=== PATIENT | male | born 1995 | race Two or more races ===

== ENCOUNTER 2020-04-18 13:53 | Emergency (ER) | payer MEDICAID, SELFPAY ==
[2020-04-18 13:58] VITALS: BP 149/71; PULSE 70; RESP 16; TEMP 36.7; BMI 28.8
[2020-04-18 14:02] VITALS: O2SAT 100
[2020-04-18 14:56] LABS: MANUAL DIFF FLAG NO
[2020-04-18 14:58] LABS: Basophils Percent Auto 0.1 % (0-2); Eosinophils Percent Auto 0.1 % (0-4); Hematocrit 43.3 % (42-52); Hemoglobin 14.7 g/dl (14.0-18.0); Imm Gran Abs Auto 0.02 X10*3/uL (0.00-0.03); Imm Gran Pct Auto 0.2 % (0.0-0.4); Lymphocytes Absolute Auto 1.4 X10*3/uL (1.2-4.9); Lymphocytes Percent Auto 17.3 % (20-40); Mean Corpuscular HGB Conc 33.9 g/dl (31.0-36.0); Mean Corpuscular Hemoglobin 30.8 pg (27.0-33.0); Mean Corpuscular Volume 90.8 fL (80-98); Mean Platelet Volume 9.3 fL (9.4-12.4); Monocytes Absolute Auto 0.6 X10*3/uL (0.1-1.2); Monocytes Percent Auto 7.4 % (2-11); Neutrophils Absolute Auto 6.1 X10*3/uL (2.0-8.3); Neutrophils Percent Auto 74.9 % (45-73); Platelet Count 258 X10*3/uL (160-400); Red Blood Count 4.77 X10*6/uL (4.60-5.80); Red Cell Distribution Width 12.7 % (11.0-16.0); White Blood Count 8.1 X10*3/uL (4.8-10.8)
[2020-04-18] MEDS: 0.9 % Sodium Chloride 1,000 ML 999 ML IV (15:12)
[2020-04-18 15:20] LABS: COVID-19 Test Negative (Negative)
[2020-04-18 15:40] LABS: Alanine Aminotransferase 26 U/L (0-40); Albumin Level 4.8 g/dL (3.5-5.0); Alkaline Phosphatase 85 U/L (39-117); Anion Gap 12 (12-20); Aspartate Amino Transferase 19 U/L (5-37); Bilirubin Total 0.4 mg/dL (0.0-1.0); Blood Urea Nitrogen 9 mg/dL (9-16); Calcium 9.4 mg/dL (8.4-10.2); Carbon Dioxide 29 mmol/L (22-29); Chloride 102 mmol/L (96-108); Creatinine Clr Calc Pharmacy 119.8; Estimated Glomerular Filt Rate > 60; Glucose Random 105 mg/dL (60-115); Potassium 4.1 mmol/l (3.3-5.1); Sodium 139 mmol/L (135-145); Total Protein 7.5 g/dL (6.5-8.0)
--- NOTE | 2020-04-18 15:55 | ED.GENADULT ---
HPI - General Adult General Chief complaint: General Medical Stated complaint: Multiple complaints Time Seen by Provider: 04/18/20 14:03 Source: patient Mode of arrival: ambulatory Limitations: no limitations History of Present Illness HPI narrative: Otherwise healthy 25-year-old male presenting with complaint of 2 days of nausea and vomiting with myalgias states he went to his primary care doctor's office yesterday he had a COVID test that was negative he had labs done and today he called as he continued to have nausea and vomiting was advised to come to the emergency room. Positive sick contact, no recent travel or antibiotic use. Onset (ago): day(s) Quality: aching Relieving factors: none Treatments prior to arrival: none Related Data Previous Rx's Medication Instructions Recorded ondansetron HCl [Zofran] 4 mg PO Q8H PRN #10 tab 04/18/20 Allergies Allergy/AdvReac Type Severity Reaction Status Date / Time No Known Allergies Allergy Unverified 12/23/19 16:16 Review of Systems Review of Systems: Constitutional: No Weight loss, No Fever, No Chills, No Night Sweats, No Fatigue, No Malaise ENT/Mouth: No Hearing loss, No Ear Pain, No Nasal Congestion, No Sinus Pain, No Hoarseness, No sore throat, No Rhinorrhea, No Swallowing Difficulty Eyes: No Eye Pain, No Swelling, No Redness, No Foreign Body, No Discharge, No Vision Changes Cardiovascular: No Chest Pain, No SOB, No Dyspnea on Exertion, No Orthopnea, No Edema, No Palpitations Respiratory: No Cough, No Sputum, No Wheezing, No Smoke Exposure, No Dyspnea Gastrointestinal: + Nausea, + Vomiting, No Diarrhea, No Constipation, + abdominal Pain, No Hematochezia, No Melena Genitourinary: no irregular bleeding, No Dysuria, No Urinary Frequency, No Hematuria, No Urinary Incontinence, No Urgency, No Flank Pain Musculoskeletal: No joint pain, No Myalgias, No Joint Swelling Skin: No Skin Lesions, No rash Neuro: No Weakness, No Numbness, No Paresthesias, No Loss of Consciousness, No Dizziness, No Headache Psych: No Social Issues Heme/Lymph: No Bruising, No Bleeding,No Lymphadenopathy Endocrine: No Polyuria, No Polydipsia, No Temperature Intolerance Yes all other systems are reviewed and are negative [facility] Social History Social History Advance Directives: No Advance Directives Information Provided: No Physical Exam Vital Signs: Vital Signs: Last Vital Signs Temp 98.1 F 04/18/20 13:58 Pulse 70 04/18/20 13:58 Resp 16 04/18/20 13:58 BP 149/71 H 04/18/20 13:58 Pulse Ox 100 04/18/20 14:02 Body Mass Index 28.8 Reviewed Const: General: cooperative and healthy appearing; No acute distress or intoxicated appearing Nutritional Appearance: average body habitus Orientation/consciousness: patient oriented x3 HENMT: Head: Yes normal to inspection Ears: hearing grossly normal bilaterally Eyes: General: appearance normal, both eyes and all related structures Visual Tobias: normal visual tobias by confrontation Neck: Neck: Yes normal visual inspection, No positive Brudzinski's sign, No positive Kernig's sign and No tender Thyroid: Thyroid normal Chest: Chest palpation & inspection: normal inspection of the chest Resp: Effort & Inspection: normal respiratory effort Auscultation: clear to auscultation bilaterally Cardio: Jugular venous distension: no JVD Rhythm: regular rhythm Heart sounds: S1 normal heart sound present and S2 normal heart sound present GI: Inspection: Yes normal to inspection Palpation (GI): Soft to palpation, nontender, no guarding and not rigid Percussion: Yes normal to percussion Auscultation: normal bowel sounds : General: Yes no CVA tenderness Back/Spine/Pelvis: Back: no CVA tenderness Skin: General skin exam: no rashes or lesions noted Neuro: General: patient oriented x3 Extrem: General: Yes normal to inspection Course Course Course Narrative: Has been resting comfortably. Labs overall stable. No leukocytosis. Abdominal exam on re-evaluation reveals no acute surgical abdomen. COVID negative. Will discharge home with short course of Zofran, clear return follow-up instructions/precautions. Patient agreeable and comfortable plan. Requesting work note for today. Medical Decision Making Differential Diagnosis Differential Diagnosis: Viral syndrome, gastroenteritis, acute N/V, appendicitis, renal calculi. Lab Data Result diagrams: 04/18/20 14:51 04/18/20 14:51 Labs: Lab Results 04/18/20 04/18/20 04/18/20 Range/Units 14:51 14:51 14:52 WBC 8.1 (4.8-10.8) X10*3/uL RBC 4.77 (4.60-5.80) X10*6/uL Hgb 14.7 (14.0-18.0) g/dl Hct 43.3 (42-52) % MCV 90.8 (80-98) fL MCH 30.8 (27.0-33.0) pg MCHC 33.9 (31.0-36.0) g/dl RDW 12.7 (11.0-16.0) % Plt Count 258 (160-400) X10*3/uL MPV 9.3 L (9.4-12.4) fL Immature Gran % (Auto) 0.2 (0.0-0.4) % Neut % (Auto) 74.9 H (45-73) % Lymph % (Auto) 17.3 L (20-40) % [place] % (Auto) 7.4 (2-11) % Eos % (Auto) 0.1 (0-4) % Baso % (Auto) 0.1 (0-2) % Lymph # (Auto) 1.4 (1.2-4.9) X10*3/uL [place] # (Auto) 0.6 (0.1-1.2) X10*3/uL Eos # (Auto) 0.0 (0.0-0.4) X10*3/uL Baso # (Auto) 0.0 (0.0-0.2) X10*3/uL Abs Immat Gran (auto) 0.02 (0.00-0.03) X10*3/uL Absolute Neuts (auto) 6.1 (2.0-8.3) X10*3/uL Absolute Nucleated RBC 0.000 (0.0-0.012) X10*3/uL Nucleated RBC % (auto) 0.0 (0.0-0.2) /100WBC Sodium 139 (135-145) mmol/L Potassium 4.1 (3.3-5.1) mmol/l Chloride 102 (96-108) mmol/L Carbon Dioxide 29 (22-29) mmol/L Anion Gap 12 (12-20) BUN 9 (9-16) mg/dL Creatinine 1.18 (0.5-1.4) mg/dL Estim Creat Clear Calc 119.8 Estimated GFR > 60 Random Glucose 105 (60-115) mg/dL Calcium 9.4 (8.4-10.2) mg/dL Total Bilirubin 0.4 (0.0-1.0) mg/dL AST 19 (5-37) U/L ALT 26 (0-40) U/L Alkaline Phosphatase 85 (39-117) U/L Total Protein 7.5 (6.5-8.0) g/dL Albumin 4.8 (3.5-5.0) g/dL COVID-19 ([facility]) Negative (Negative) COVID-19 Clin Com See Note Discharge Plan Discharge Clinical Impression: Gastroenteritis Patient Disposition: Home, Self-Care Instructions: Acute Nausea and Vomiting (ED) Additional Instructions: Drink plenty of fluids Gradually increase her diet as tolerated Your blood work was overall stable today Her COVID test was negative today Return if any concerns or worsening symptoms Thank you Prescriptions: New ondansetron HCl [Zofran] 4 mg tablet 4 mg PO Q8H PRN (Reason: nausea and vomiting) Qty: 10 RF: 0 Referrals: [facility] [Primary Care Provider] - 1 week
== END 2020-04-18 16:23 | disposition home or self-care (01) ==
PROVIDERS: Nurse Practitioner Primary Care; Emergency Provider Emergency Medicine Emergency Medical Services
DX: K52.9 Noninfective gastroenteritis and colitis, unspecified (principal); R11.2 Nausea with vomiting, unspecified; Z20.828 Contact with and (suspected) exposure to other viral communicable diseases
CPT/HCPCS: 36415; 80053; 85025; 87635; 96360; 99283; 99284

== ENCOUNTER 2021-08-05 11:08 | Emergency (ER) | payer MEDICAID, SELFPAY ==
[2021-08-05 11:14] VITALS: BP 137/77; PULSE 102; RESP 18; TEMP 36.9; O2SAT 98; BMI 30.3
--- NOTE | 2021-08-05 11:35 | ED.GENADULT ---
HPI - General Adult General Chief complaint: General Medical Stated complaint: fever back pain Time Seen by Provider: 08/05/21 11:29 Source: patient Mode of arrival: ambulatory Limitations: no limitations History of Present Illness HPI narrative: 26 y/o male presents to the ER with severe generalized body aches that stated today. He was diagnosed with COVID-19 today. He states his back pain is unbearable. He is also coughing, having headaches and generalized malaise. He is unvaccinated. He reports some SOB with exertion only. No difficulty breathing or chest pain. He is asking for pain medication for his back because it is severe. He denies any urinary complaints, abdominal pain, N/V/D. MD complaint: body aches Onset (ago): hour(s) Location: back Radiation: non-radiation Severity: moderate Quality: aching Pain Consistency: constant Relieving factors: none Exacerbating factors: none Associated symptoms: cough, headaches, loss of appetite, malaise and shortness of breath Treatments prior to arrival: none Related Data Previous Rx's Medication Instructions Recorded ondansetron HCl 4 mg tablet 4 mg PO Q8H PRN #10 tab 04/18/20 (Zofran) ibuprofen 800 mg tablet 800 mg PO Q8H PRN #15 tab 08/05/21 Allergies Allergy/AdvReac Type Severity Reaction Status Date / Time No Known Allergies Allergy Unverified 12/23/19 16:16 Review of Systems Review of Systems: Constitutional: No Fever, No Chills ENT/Mouth: + sore throat, No Rhinorrhea, No Swallowing Difficulty Eyes: No Eye Pain, No Swelling, No Redness Cardiovascular: No Chest Pain, + SOB, No Orthopnea, No Edema Respiratory: + Cough, No Sputum, No Wheezing, No dyspnea Gastrointestinal: No Nausea, No Vomiting, No Diarrhea, No abdominal Pain Genitourinary: No Dysuria, No Urinary Frequency, No Hematuria Musculoskeletal: +joint pain, + Myalgias Skin: No Skin Lesions, No rash Neuro: No Weakness, No Numbness, No Dizziness, + Headache Psych: No Anxiety/Panic, No Depression Heme/Lymph: No Bruising, No Lymphadenopathy PMFSH Past Medical History Medical History (Updated 08/05/21 @ 11:37 by ZACARIAS Gomez) No known health problems Social History Social History Advance Directives: No Advance Directives Information Provided: Yes Physical Exam ED Vital Signs: Vital Signs - 24 hr 08/05/21 11:14 Temperature 98.5 F Pulse Rate 102 H Respiratory Rate 18 Blood Pressure 137/77 Pulse Oximetry 98 BMI result Body Mass Index 30.3 Appearance: Alert. Oriented X3. No acute distress. Eyes: Pupils equal, round and reactive to light. ENT: Pharynx normal. Neck: Normal inspection. Neck supple. CVS: Normal heart rate and rhythm. Pulses normal. Respiratory: No respiratory distress. Breath sounds normal. Abdomen: Soft and nontender. +BS x4 Back: normal inspection. tenderness of the soft tissues throughout. Skin: Skin warm and dry. Normal skin color. Normal skin turgor. No rashes. Extremities: No lower extremity edema. Neuro: Oriented X 3. No motor deficit. No sensory deficit. Steady gait Course Course Course Narrative: 26 y/o male presenting with severe body aches, dry cough, headaches that started today. VSS and exam is unremarkable. Medicated with Motrin. He is asking for something stronger for muscle aches. We discussed treatment for body aches in the setting of viral illness. Narcotics not indicated. Stable for discharge home. Return precautions discussed Discharge Plan Discharge Clinical Impression: COVID-19 Patient Disposition: Home, Self-Care Instructions: Covid-19 Viral Syndrome and Novel Coronavirus (ED) Hey/Ath Additional Instructions: You were found to be COVID-19 POSITIVE today. Your exam and oxygen levels were normal. Rest. Drink plenty of fluids. Do not go out in public for the next 10 days. Take over the counter cold/flu medications as needed for your symptoms. Take Tylenol and Motrin as needed for fevers and body aches. Follow up with your doctor this week. If you shortness of breath worsens , if you develop difficulty breathing or any other concerning symptom come back to the ER for further evaluation. Prescriptions: New ibuprofen 800 mg tablet 800 mg PO Q8H PRN (Reason: fever or pain) Qty: 15 0RF No Action ondansetron HCl [Zofran] 4 mg tablet 4 mg PO Q8H PRN (Reason: nausea and vomiting) Qty: 10 0RF Stand Alone Forms: Work/School Release Interventions: ED Discharge Assessment Last Done: 08/05/21 12:12 Discharge Date/Time: 08/05/21 12:13
[2021-08-05] MEDS: Ibuprofen 600 MG TABLET PO (11:38)
== END 2021-08-05 12:13 | disposition home or self-care (01) ==
PROVIDERS: Emergency Provider Emergency Medicine
DX: U07.1 COVID-19 (principal)
CPT/HCPCS: 99283

== ENCOUNTER → 2022-11-29 10:06 | Outpatient (BNVA) | payer OTHER, SELFPAY | PROVIDERS: Visit Provider Internal Medicine | DX: M24.562 Contracture, left knee (principal); M62.89 Other specified disorders of muscle; S93.492A Sprain of other ligament of left ankle, initial encounter; W17.2XXA Fall into hole, initial encounter | CPT/HCPCS: 99203 ==

== ENCOUNTER → 2022-12-03 10:09 | Outpatient (BNVA) | payer OTHER, SELFPAY | PROVIDERS: Visit Provider Physician Assistant Medical | DX: M24.562 Contracture, left knee (principal); M79.669 Pain in unspecified lower leg; S93.492A Sprain of other ligament of left ankle, initial encounter; W17.2XXA Fall into hole, initial encounter | CPT/HCPCS: 99213 ==

== ENCOUNTER → 2022-12-12 12:59 | Outpatient (BNVA) | payer OTHER, SELFPAY | PROVIDERS: Visit Provider Physician Assistant Medical | DX: M24.562 Contracture, left knee (principal); S93.492D Sprain of other ligament of left ankle, subsequent encounter; W17.2XXD Fall into hole, subsequent encounter | CPT/HCPCS: 99213 ==

== ENCOUNTER 2022-12-30 10:00 | Outpatient (RCR) | payer OTHER, SELFPAY ==
--- NOTE | 2022-12-04 11:25 | MHC.PT.EP ---
[facility] [place] Office [place] Office [place] Office [address] [phone] F: [phone] F: [phone] F: [phone] F: [phone] Physical Therapy Plan of Care Date of Evaluation: Date of Surgery: Diagnosis: L knee hyperextension gastrocnemius strain L ankle sprain Assessment: 27 y/o male referred from work connection for L knee hyperextension, L gastrocnemius strain, and L ankle sprain with injury occurring on 11/26/22. Injury occurred while pulling some hose out to a garden, he stepped in a ditch resulting in hyperextension of L knee and rolled ankle. He is currently OOW and he has been using B axillary crutches (did not use them today d/t rain). Reports pain and difficulty with walking (knee lucho), stairs, turning, squatting, and job duties. Examination shows decreased L knee and ankle AROM, decreased B HS/ L gastroc length, decreased L LE strength, mild lag with SLR, mild laxity with danica and valgus test, (-) Anterior drawer/ Varus/ darling tests, mild edema L knee, and impaired gait pattern. Recommend PT 2x/week for 5 weeks to address impairments, implement HEP, and optimize functional mobility Frequency and Duration: The patient will be seen 2x/week for 5 weeks Short Term Goals: 3 weeks Compliant with HEP AMbulate without assistive device and symmetrical gait pattern > 20 minutes Assisted Goals: 5 weeks I with HEP and self management of sx Pt will improve L knee strength to 4/5 to faciliate stairs management and work duties Pt will be able to lift >20# box from floor to waist to faciliate work duties with pain < 3/10 Treatment Plan: Modalities to reduce pain, spasms and effusion. Manual therapy to restore motion and function. Therapeutic exercise to improve strength and flexibility. Neuromuscular re-education for posture and balance. Therapeutic activities to return to functional activities of daily living. Electronically signed by: Christa Holley PT Please sign and return to therapist. Thank you for your referral.
--- NOTE | 2023-02-05 09:31 | MHC.PT.DC ---
[facility] [place] [facility] [place] Office [place] Office [address]mary [address] [phone] F: [phone] F: [phone] F: [phone] F: [phone] Physical Therapy Discharge Report Diagnosis: L knee hyperextension gastrocnemius strain L ankle sprain Date of Surgery: Date of Evaluation: 12/04/22 Date of Discharge: 02/05/23 Treatments to Date: 8 Cancellations to Date: 3 No Shows to Date: 0 Discharge Status: Independent with HEP Patient Elected to Stop Discharge Summary: Pt made minimal progress with PT with continued pain. He underwent knee MRI and left message that he will be having surgery. D/c at this time. Electronically signed by: Christa Holley PT Please sign and return to therapist. Thank you for your referral.
== END 2023-02-05 09:31 | disposition home or self-care (01) ==
LOC: HO.PT 10:00
PROVIDERS: Visit Provider Physician Assistant Medical
DX: S93.402D Sprain of unspecified ligament of left ankle, subsequent encounter (principal); S86.119D Strain of other muscle(s) and tendon(s) of posterior muscle group at lower leg level, unspecified leg, subsequent encounter
CPT/HCPCS: 97110; 97140; 97161; 97530

== ENCOUNTER 2022-12-30 19:40 | Outpatient (REF) | payer OTHER, SELFPAY ==
--- NOTE | ~2022-12-30 | MR_ITS ---
EXAMINATION: MR KNEE WITHOUT CONTRAST, LEFT CLINICAL INFORMATION: Left knee pain COMPARISON: Radiographs 11/29/2022 TECHNIQUE: MRI of the knee without contrast was performed using routine sequences on a high-field scanner. FINDINGS: MENISCI: Medial Meniscus: Intact Lateral Meniscus: Intact LIGAMENTS: Cruciate: Intact Collateral: Intact. MCL bursitis. EXTENSOR MECHANISM: Mild proximal patella tendinopathy. Patella katy. 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 ARTICULAR CARTILAGE/BONE: Patellofemoral Compartment: Normal Medial Compartment: There is an osteochondral lesion along the lateral aspect of the weightbearing femoral condyle. There is a 1.1 x 1.2 x 0.6 cm component where the subchondral marrow is of low T1 signal, with mild edema. There are a few small cysts and marrow edema of the femoral condyle deep to the osteochondral lesion indicating an unstable OCD. There is an adjacent 4 mm ossification at the lateral aspect, projecting into the intercondylar notch. There is evidence of a healed portion anteriorly. Lateral Compartment: Normal JOINT FLUID AND BURSAE: No joint effusion. MR/MR knee LT wo con IMPRESSION: 1. Unstable osteochondral lesion of the medial femoral condyle as detailed in the comments. A 4 mm ossified body is present along the lateral margin, projecting into the intercondylar notch. No significant joint effusion. 2. MCL bursitis. 3. Patella katy. 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
== END 2022-12-30 19:41 | disposition home or self-care (01) ==
LOC: HO.MRI 19:40
PROVIDERS: Visit Provider Internal Medicine
DX: M25.562 Pain in left knee (principal)
CPT/HCPCS: 73721

== ENCOUNTER → 2024-10-06 08:18 | Outpatient (BNVA) | payer OTHER, SELFPAY | PROVIDERS: Visit Provider Internal Medicine | DX: L24.5 Irritant contact dermatitis due to other chemical products (principal); Z02.79 Encounter for issue of other medical certificate | CPT/HCPCS: 99202 ==

== ENCOUNTER → 2024-10-11 11:06 | Outpatient (BNVA) | payer OTHER, SELFPAY | PROVIDERS: Visit Provider Internal Medicine | DX: L24.5 Irritant contact dermatitis due to other chemical products (principal); Z02.79 Encounter for issue of other medical certificate | CPT/HCPCS: 99213 ==

== ENCOUNTER → 2024-10-29 13:58 | Outpatient (BNVA) | payer OTHER, SELFPAY | PROVIDERS: Visit Provider Physician Assistant Medical | DX: L24.5 Irritant contact dermatitis due to other chemical products (principal) | CPT/HCPCS: 99213 ==